=== PATIENT | female | born 1995 | race American Indian/Alaskan Native ===

== ENCOUNTER 2017-02-17 21:37 | Emergency (ER) | payer MEDICAID ==
[2017-02-17] MEDS ORDERED: PROVENTIL IH ONE (21:51)
--- NOTE | 2017-02-17 22:16 | Emergency Department Report ---
ED Asthma HPI - General Chief Complaint: Adult Asthma Stated Complaint: SOB,COUGH,COLD,ABD PAIN, Time Seen by Provider: 02/17/17 22:00 Source: patient Mode of arrival: Ambulatory Limitations: No Limitations - History of Present Illness Initial Comments: She reports that she has asthma flareup and she's been using her albuterol very frequently over the last 3 weeks she's been using it at least 2-3 times a day. She says she has cough and nasal congestion. she reports that her albuterol inhaler is not working. She denies any wheezing. No recent emergency room visit for asthma flare. Denies any chest pain or shortness of breath. Denies any nausea or vomiting. Denies any fever or chills. Patient also reports that her last period was 12/01/2016 and she took a home test was positive with spacer at approximately 10 weeks . She has no care because she says she has no insurance. She said a few weeks ago she had a large amount of vaginal bleeding but she did not follow-up because she did not have any way to get to the hospital. She denies any abdominal pain, back pain, flank pain. Denies any urinary burning frequency or urgency. Denies any vaginal bleeding or discharge is present. Patient is also requesting an ultrasound to check her baby. MD Complaint: "asthma attack", other () Onset/Timin -: week(s) Asthma History: childhood onset, history of frequent attac, history of prior ED visit Severity: similar to prior Context: recent URI Associated Symptoms: dry cough. denies: productive cough, fever, chest pain, hemoptysis, leg edema, syncope Treatments Prior to Arrival: inhaled bronchodilator - Related Data Current Asthma Therapy: inhaled bronchodilator Previous Rx's Medication Instructions Recorded Last Taken Type ALBUTEROL Inhaler [ProAir HFA 2 puff IH QID PRN 30 Days #1 02/18/17 Unknown Rx Inhaler] inhalation Allergies Allergy/AdvReac Type Severity Reaction Status Date / Time No Known Allergies Allergy Unverified 02/17/17 21:47 ED Review of Systems ROS: Stated complaint: SOB,COUGH,COLD,ABD PAIN, Other details as noted in HPI Comment: All other systems reviewed and negative Constitutional: no symptoms reported ENT: congestion. denies: ear pain, throat pain Respiratory: cough. denies: orthopnea, shortness of breath, SOB with exertion, SOB at rest, stridor, wheezing Cardiovascular: denies: chest pain, palpitations, dyspnea on exertion, orthopnea , edema, syncope, paroxysmal nocturnal dyspnea Gastrointestinal: denies: abdominal pain, nausea, vomiting, diarrhea, constipation, hematemesis, melena, hematochezia Genitourinary: abnormal menses, other (report that she had vaginal bleeding couple weeks ago but did not follow up). denies: urgency, dysuria, frequency, hematuria, discharge, dyspareunia Musculoskeletal: denies: back pain, joint swelling, arthralgia, myalgia Skin: denies: rash Neurological: denies: headache, weakness, numbness, paresthesias, confusion, abnormal gait, vertigo ED Past Medical Hx - Past Medical History Previous Medical History?: Yes Hx Asthma: Yes - Surgical History Past Surgical History?: Yes Additional Surgical History: Tonsilectomy - Family History Family history: no significant - Social History Smoking Status: Never Smoker Substance Use Type: None - Medications Home Medications: Home Medications Medication Instructions Recorded Confirmed Last Taken Type ALBUTEROL Inhaler [ProAir HFA 2 puff IH QID PRN 30 Days #1 02/18/17 Unknown Rx Inhaler] inhalation ED Physical Exam - General Limitations: No Limitations General appearance: alert, in no apparent distress - Head Head exam: Present: atraumatic, normocephalic, normal inspection - Eye Eye exam: Present: PERRL, EOMI Pupils: Present: normal accommodation - ENT ENT exam: Present: normal orophraynx, mucous membranes moist, normal external ear exam, other (bilateral nasal mucosa congested with erythema and clear drainage.). Absent: TM's normal bilaterally (bilateral TM congested without erythema) - Neck Neck exam: Present: normal inspection, full ROM. Absent: tenderness, meningismus, lymphadenopathy - Respiratory Respiratory exam: Present: normal lung sounds bilaterally. Absent: respiratory distress, chest wall tenderness, accessory muscle use - Cardiovascular Cardiovascular Exam: Present: regular rate, normal rhythm, normal heart sounds. Absent: systolic murmur, diastolic murmur - GI/Abdominal GI/Abdominal exam: Present: soft, normal bowel sounds. Absent: distended, tenderness, guarding, rebound, rigid, organomegaly, mass, bruit, pulsatile mass , hernia - Extremities Exam Extremities exam: Present: normal inspection, full ROM, normal capillary refill , other (no clubbing, cyanosis or edema. +2 pulses to all extremities. No neurovascular compromise.). Absent: tenderness, pedal edema, joint swelling, calf tenderness - Back Exam Back exam: Present: normal inspection, full ROM. Absent: tenderness, CVA tenderness (R), CVA tenderness (L), muscle spasm, paraspinal tenderness, vertebral tenderness, rash noted - Neurological Exam Neurological exam: Present: alert, oriented X3, normal gait - Psychiatric Psychiatric exam: Present: normal affect, normal mood - Skin Skin exam: Present: warm, dry, intact, normal color. Absent: rash ED Course Vital Signs 02/17/17 02/18/17 21:41 02:28 Temperature 97.5 F L Pulse Rate 75 89 Respiratory 20 18 Rate Blood Pressure 135/89 Blood Pressure 138/89 [Left] O2 Sat by Pulse 99 Oximetry - Reevaluation(s) Reevaluation #1: 02/17/17 23:30 Patient had uneventful ED stay. She was given nebulizer treatment in emergency room. She had coughing but no wheezing. She is stable but request an ultrasound because she said she is and had vaginal bleeding 2 weeks ago. Reevaluation #2: 02/18/17 02:06 Ultrasound canceled because patient serum quantitative hCG was less than 2. Patient received albuterol 2 doses and emergency room with positive relief of wheezing from lung [place]. I discussed this with patient and I discussed with her that she more than likely had a miscarriage and she will need to follow up outpatient with [facility]. No pelvic exam needed at this time because patient is not having any abdominal pain, vaginal bleeding or discharge. urinalysis normal except that it was contaminated. She is not having any urinary symptoms. 02/18/17 05:59 ED Medical Decision Making - Lab Data Result diagrams: 02/17/17 22:39 02/17/17 22:39 Lab Results 02/17/17 02/17/17 02/17/17 Range/Units 22:39 22:39 22:39 WBC 11.1 H (4.5-11.0) K/mm3 RBC 4.54 (3.65-5.03) M/mm3 Hgb 12.9 (10.1-14.3) gm/dl Hct 39.7 (30.3-42.9) % MCV 87 (79-97) fl MCH 28 (28-32) pg MCHC 32 (30-34) % RDW 14.0 (13.2-15.2) % Plt Count 372 (140-440) K/mm3 Lymph % (Auto) 33.0 (13.4-35.0) % [place] % (Auto) 11.2 H (0.0-7.3) % Eos % (Auto) 7.6 H (0.0-4.3) % Baso % (Auto) 0.9 (0.0-1.8) % Lymph # 3.7 (1.2-5.4) K/mm3 [place] # 1.2 H (0.0-0.8) K/mm3 Eos # 0.8 H (0.0-0.4) K/mm3 Baso # 0.1 (0.0-0.1) K/mm3 Seg Neutrophils % 47.3 (40.0-70.0) % Seg Neutrophils # 5.2 (1.8-7.7) K/mm3 Sodium 137 (137-145) mmol/L Potassium 4.4 (3.6-5.0) mmol/L Chloride 100.9 (98-107) mmol/L Carbon Dioxide 23 (22-30) mmol/L Anion Gap 18 mmol/L BUN 6 L (7-17) mg/dL Creatinine 0.6 L (0.7-1.2) mg/dL Estimated GFR > 60 ml/min BUN/Creatinine Ratio 10 % Glucose 85 (65-100) mg/dL Calcium 8.8 (8.4-10.2) mg/dL HCG, Qual (Negative) HCG, Quant < 2 (0-4) mIU/mL Urine Color (Yellow) Urine Turbidity (Clear) Urine pH (5.0-7.0) Ur Specific [place] (1.003-1.030) Urine Protein (Negative) mg/dL Urine Glucose (UA) (Negative) mg/dL Urine Ketones (Negative) mg/dL Urine Blood (Negative) Urine Nitrite (Negative) Urine Bilirubin (Negative) Urine Urobilinogen (<2.0) mg/dL Ur Leukocyte Esterase (Negative) Urine WBC (Auto) (0.0-6.0) /HPF Urine RBC (Auto) (0.0-6.0) /HPF U Epithel Cells (Auto) (0-13.0) /HPF Urine Mucus /HPF 02/17/17 02/18/17 Range/Units 22:39 00:11 WBC (4.5-11.0) K/mm3 RBC (3.65-5.03) M/mm3 Hgb (10.1-14.3) gm/dl Hct (30.3-42.9) % MCV (79-97) fl MCH (28-32) pg MCHC (30-34) % RDW (13.2-15.2) % Plt Count (140-440) K/mm3 Lymph % (Auto) (13.4-35.0) % [place] % (Auto) (0.0-7.3) % Eos % (Auto) (0.0-4.3) % Baso % (Auto) (0.0-1.8) % Lymph # (1.2-5.4) K/mm3 [place] # (0.0-0.8) K/mm3 Eos # (0.0-0.4) K/mm3 Baso # (0.0-0.1) K/mm3 Seg Neutrophils % (40.0-70.0) % Seg Neutrophils # (1.8-7.7) K/mm3 Sodium (137-145) mmol/L Potassium (3.6-5.0) mmol/L Chloride (98-107) mmol/L Carbon Dioxide (22-30) mmol/L Anion Gap mmol/L BUN (7-17) mg/dL Creatinine (0.7-1.2) mg/dL Estimated GFR ml/min BUN/Creatinine Ratio % Glucose (65-100) mg/dL Calcium (8.4-10.2) mg/dL HCG, Qual Negative (Negative) HCG, Quant (0-4) mIU/mL Urine Color Yellow (Yellow) Urine Turbidity Clear (Clear) Urine pH 6.0 (5.0-7.0) Ur Specific [place] 1.026 (1.003-1.030) Urine Protein <15 mg/dl (Negative) mg/dL Urine Glucose (UA) Neg (Negative) mg/dL Urine Ketones Neg (Negative) mg/dL Urine Blood Neg (Negative) Urine Nitrite Neg (Negative) Urine Bilirubin Neg (Negative) Urine Urobilinogen 4.0 (<2.0) mg/dL Ur Leukocyte Esterase Sm (Negative) Urine WBC (Auto) 4.0 (0.0-6.0) /HPF Urine RBC (Auto) 1.0 (0.0-6.0) /HPF U Epithel Cells (Auto) 16.0 H (0-13.0) /HPF Urine Mucus 3+ /HPF - Medical Decision Making ED course: Patient here report that she was having an asthma flareup and has been using her asthma several times a day. She reports cough. She is also here reporting that she had a positive test and her last menstrual period was 10 weeks ago. Blood and quantitative hCG negative for . Patient with mild asthma exacerbation. She also has upper respiratory tract infection with cough and congestion. I discussed patient that since she has report of positive tests, large amount of vaginal bleeding in about 2 weeks ago without any follow-up, absence of menses for 10 weeks and her test were negative. I told her that there is a high probability that she had a complete miscarriage. Patient is not having any vaginal bleeding at present and she has not had any since 2 weeks ago. She is not complaining of any urinary symptoms or any vaginal symptoms nor she concern for STD. Patient was treated with albuterol 2.5 mg nebulizer 2 and emergency room with positive relief of wheezing and cough has diminished. I discussed with her that since she does not have a primary care physician she'll need to follow up with some [facility] to manage her chronic asthma and also they can refer her to [facility] at same clinic follow-up possible miscarriage. She discharged home and she was understanding the discharge instructions and need to follow up and give her prescription for albuterol. I also instructed her she can take Zyrtec and Flonase for upper respiratory which is [id number] to prevent asthma exacerbation. Critical care attestation.: If time is entered above; I have spent that time in minutes in the direct care of this critically ill patient, excluding procedure time. ED Disposition Clinical Impression: Negative test, Cough in adult, Complete miscarriage, Abnormal menses , Upper respiratory infection with cough and congestion Asthma attack Qualifiers: Asthma severity: mild Asthma persistence: intermittent Qualified Code(s): J45.21 - Mild intermittent asthma with (acute) exacerbation Disposition: - TO HOME OR SELFCARE Is pt being admited?: No Does the pt Need Aspirin: No Condition: Stable Instructions: Spontaneous Miscarriage (ED), Asthma (ED), Acute Cough (ED), Upper Respiratory Infection (ED) Additional Instructions: follow-up with outside Medical Center for primary care since she does not have any insurance and they can also refer you to [facility] at some outside Medical Center Your blood test and blood hormone tests shows that you're not and she reports that you had vaginal bleeding approximately 2 weeks ago. Since she had not had a period for 10 weeks, positive home test with reported vaginal bleeding and now negative test the assumption is that you had a miscarriage. Increasing fluid intake Please call with outside Medical Center on Monday and schedule an appointment for management of asthma as you may need medication that you take twice a day so he will not have to use your rescue inhaler as often as you using it. Prescriptions: ALBUTEROL Inhaler [ProAir HFA Inhaler] 2 puff IH QID PRN 30 Days #1 inhalation PRN Reason: COUGH AND WHEEZING Referrals: [facility] [Outside] - 3-5 Days [facility] [Provider Group] - 3-5 Days Forms: Work/School Release Form(ED)
[2017-02-17 23:27] LABS: Basophils % (Auto) 0.9 % (0.0-1.8); Eosinophils % (Auto) 7.6 % (0.0-4.3); Hematocrit 39.7 % (30.3-42.9); Hemoglobin 12.9 gm/dl (10.1-14.3); Mean Corpuscular HGB Conc 32 % (30-34); Mean Corpuscular Hemoglobin 28 pg (28-32); Mean Corpuscular Volume 87 fl (79-97); Platelet Count 372 K/mm3 (140-440); Red Blood Count 4.54 M/mm3 (3.65-5.03); White Blood Count 11.1 K/mm3 (4.5-11.0)
[2017-02-17 23:41] LABS: Anion Gap 18 mmol/L; BUN/Creatinine Ratio 10; Blood Urea Nitrogen 6 mg/dL (7-17); Calcium 8.8 mg/dL (8.4-10.2); Carbon Dioxide 23 mmol/L (22-30); Chloride 100.9 mmol/L (98-107); Glucose 85 mg/dL (65-100); Potassium 4.4 mmol/L (3.6-5.0); Sodium 137 mmol/L (137-145)
[2017-02-18 00:24] LABS: Bilirubin,Urine NEG (Negative); Blood,Urine NEG (Negative); Ketones,Urine NEG (Negative); Leukocyte Esterase,Urine SM (Negative); Mucus,Urine 3+ /HPF; Nitrite,Urine NEG (Negative); Protein,Urine <15 mg/dL mg/dL (Negative)
[2017-02-18] MEDS ORDERED: PROVENTIL IH ONE ×2 (01:49)
[2017-02-18 02:29] VITALS: BP 138/89
== END 2017-02-18 02:29 | disposition home or self-care (01) ==
LOC: ED 21:37
DX: J45.21 Mild intermittent asthma with (acute) exacerbation (principal); J06.9 Acute upper respiratory infection, unspecified; N92.6 Irregular menstruation, unspecified
CPT/HCPCS: 36415; 80048; 81001; 84702; 84703; 85025; 94640

== ENCOUNTER 2020-10-06 08:24 | Inpatient (IN) | payer MEDICAID ==
[2020-10-06] MEDS ORDERED: LOPERAMIDE 2 MG CAP PO PRN (10:36)
[2020-10-06] MEDS ORDERED: CARBOPROST TROMETHAMINE 250 MCG/1 ML INJ IM PRN (10:36)
[2020-10-06] MEDS ORDERED: AMPICILLIN/NS 2 GM/100 ML 2 GM/100 ML BAG IV ONE (10:36)
[2020-10-06] MEDS ORDERED: TERBUTALINE 1 MG/1 ML INJ SUB-Q PRN (10:36)
[2020-10-06] MEDS ORDERED: DINOPROSTONE 10 MG VAG SUPP VG NR (10:36)
[2020-10-06] MEDS ORDERED: INSULIN REGULAR, HUMAN 100 UNITS/1 ML SUB-Q SCH (11:00)
[2020-10-06] MEDS ORDERED: DEXTROSE 50% IN WATER (25GM) 50 ML SYRINGE IV PRN (11:00)
[2020-10-06] MEDS ORDERED: OXYTOCIN DRIP 30 UNITS/500 ML BAG IV SCH ×2 (11:00)
[2020-10-06] MEDS ORDERED: fentaNYL 100 MCG/2 ML INJ IV PRN (11:00)
[2020-10-06] MEDS ORDERED: LIDOCAINE (2%) 20 MG/1 ML VIAL 20 ML MDV INFILTRATI NR (11:00)
[2020-10-06] MEDS ORDERED: ePHEDrine SULFATE 50 MG/1 ML INJ IV PRN (11:00)
[2020-10-06] MEDS ORDERED: ACETAMINOPHEN 325 MG TAB PO PRN (11:00)
[2020-10-06] MEDS ORDERED: valACYclovir 500 MG TAB PO SCH (11:00)
[2020-10-06] MEDS ORDERED: OXYTOCIN 10 UNIT/1 ML INJ IM PRN (11:30)
[2020-10-06] MEDS ORDERED: miSOPROStol 200 MCG TAB PR PRN (11:30)
[2020-10-06] MEDS ORDERED: BUTORPHANOL 2 MG/1 ML INJ IV PRN (11:30)
[2020-10-06] MEDS ORDERED: ONDANSETRON 4 MG/2 ML INJ IV PRN (11:30)
[2020-10-06] MEDS ORDERED: NALOXONE 0.4 MG/1 ML INJ IV PRN (11:30)
--- NOTE | 2020-10-06 13:24 | History and Physical Report ---
History of Present Illness Date of examination: 10/06/20 Chief complaint: scheduled induction History of present illness: Pt is a 24 year old -[place] female [place] 10/19/20 at 38w1d who presents for scheduled induction secondary to chronic hypertension on no meds, gestational diabetes on Metformin, and morbid obesity. She denies contractions or vaginal bleeding. She has had care at [facility] with comanagement by [facility] secondary to morbid obesity, chronic hypertension, gestational diabetes, polyhydramnios, asthma, maternal VSD s/p Cardiology referral March 2020, and genital herpes. She is GBS positive. Past History Past Medical History: asthma, hypertension (maternal VSD; ) Past Surgical History: tonsillectomy, [employer] History: herpes Family/Genetic History: heart disease, hypertension, cancer Social history: no significant social history - Obstetrical History Expected Date of Delivery: 10/19/20 (.) Actual Gestation: 38 Week(s) 1 Day(s) : 3 Para: 0 Hx # Term Pregnancies: 0 Number of Pregnancies: 0 Spontaneous Abortions: 0 Induced : 2 Number of Living Children: 0 Medications and Allergies Allergies Allergy/AdvReac Type Severity Reaction Status Date / Time No Known Allergies Allergy Unverified 02/17/17 21:47 Home Medications Medication Instructions Recorded Confirmed Last Taken Type Albuterol Mdi (or & Nicu Only) 2 puff IH QID PRN 30 Days #1 02/18/17 Unknown Rx [ProAir HFA Inhaler] inhalation Active Meds: Active Medications Acetaminophen (Acetaminophen 325 Mg Tab) 650 mg PO Q4H PRN PRN Reason: Pain, Mild (1-3) Butorphanol Tartrate (Butorphanol 2 Mg/1 Ml Inj) 1 mg IV Q2H PRN PRN Reason: Pain, Moderate(4-6) LABOR PAIN Carboprost Tromethamine (Carboprost Tromethamine 250 Mcg/1 Ml Inj) 250 mcg IM ONCE PRN PRN Reason: Uterine Bleeding Stop: 10/07/20 10:35 Dextrose (Dextrose 50% In Water (25gm) 50 Ml Syringe) 50 ml IV Q30MIN PRN; Protocol PRN Reason: Hypoglycemia Dinoprostone (Dinoprostone 10 Mg Vag Supp) 10 mg VG ONCE NR Stop: 10/07/20 10:35 Ephedrine Sulfate (Ephedrine Sulfate 50 Mg/1 Ml Inj) 10 mg IV Q2M PRN PRN Reason: Hypotension Fentanyl (Fentanyl 100 Mcg/2 Ml Inj) 100 mcg IV Q2H PRN PRN Reason: Pain,Severe (7-10) LABOR PAIN Oxytocin/Sodium Chloride (Pitocin/Ns 30 Unit/500ml) 30 units in 500 mls @ 2 mls/hr IV TITR DIANA; Protocol Lactated Ringer's (Lactated Ringers) 1,000 mls @ 125 mls/hr IV DIRECT DIANA Oxytocin/Sodium Chloride (Pitocin/Ns 30 Unit/500ml) 30 units in 500 mls @ 40 mls/hr IV TITR DIANA; Protocol Ampicillin Sodium (Ampicillin/Ns 1 Gm/50 Ml) 1 gm in 50 mls @ 100 mls/hr IV Q4H DIANA; Protocol Insulin Human Regular (Insulin Regular, Human 100 Units/1 Ml) 0 units SUB-Q Q4H DIANA; Protocol Lidocaine (Lidocaine (2%) 20 Mg/1 Ml Vial 20 Ml Mdv) 20 ml INFILTRATI ONCE NR Stop: 10/06/20 14:00 Loperamide HCl (Loperamide 2 Mg Cap) 2 mg PO ONCE PRN PRN Reason: give with Hemabate Stop: 10/07/20 10:35 Mineral Oil (Mineral Oil 30 Ml Oral Liqd) 30 ml PO QHS PRN PRN Reason: Constipation Misoprostol (Misoprostol 200 Mcg Tab) [address] ONCE PRN PRN Reason: Uterine Bleeding Stop: 10/07/20 11:29 Naloxone HCl (Naloxone 0.4 Mg/1 Ml Inj) 0.1 mg IV Q2MIN PRN PRN Reason: Res Rate </= 8 or 02 SAT < 92% Ondansetron HCl (Ondansetron 4 Mg/2 Ml Inj) 4 mg IV Q8H PRN PRN Reason: Nausea And Vomiting Oxytocin (Oxytocin 10 Unit/1 Ml Inj) 10 unit IM ONCE PRN PRN Reason: Uterine Bleeding Terbutaline Sulfate (Terbutaline 1 Mg/1 Ml Inj) 0.25 mg SUB-Q ONCE PRN PRN Reason: Hyperstimulation/Hypertonicity Stop: 10/07/20 10:35 Valacyclovir HCl (Valacyclovir 500 Mg Tab) 1,000 mg PO QDAY DIANA Review of Systems All systems: negative - Vital Signs Vital signs: Vital Signs Pulse BP 86 136/88 10/06/20 09:21 10/06/20 09:21 Temp Pulse Resp BP Pulse Ox 98.1 F 98 H 16 133/81 99 10/06/20 10:26 10/06/20 13:21 10/06/20 10:26 10/06/20 13:09 10/06/20 13:21 - Physical Exam Breasts: Positive: deferred Abdomen: Positive: soft (gravid,obese ) Uterus: Positive: enlarged (gravid ) Extremities: Positive: normal - Obstetrical FHR: auscultation normal Uterine Contraction Monitor Mode: External Cervical Dilatation: 1 Uterine Contraction Pattern: Regular Uterine Tone Measurement Phase: Resting Results Result Diagrams: 10/06/20 15:42 All other labs normal. Assessment and Plan A: IUP at 38w1d Chronic hypertension on no meds Gestational diabetes on Metformin Morbid obesity Polyhydramnios Asthma Maternal VSD s/p Cardiology referral March 2020 Genital herpes without lesion or prodrome GBS positive P: Admit to Labor and Delivery Accuchek q 4 hrs while in latent labor Valtrex Routine intrapartum care
--- NOTE | 2020-10-06 13:37 | Ultrasound Report ---
Limited OB Ultrasound HISTORY: Presentation evaluation. TECHNIQUE: Grayscale and color imaging performed. COMPARISON: None FINDINGS: Single viable intrauterine gestation with cephalic presentation. Anterior placenta. Heart r ate is 149 bpm. IMPRESSION: Single viable intrauterine gestation as above. Signer Name: Hakan Park MD Signed: 10/06/2020 1:32 PM Workstation Name: [id number]
[2020-10-06 16:06] LABS: Hematocrit 35.9 % (30.3-42.9); Hemoglobin 12.2 gm/dl (10.1-14.3); Mean Corpuscular HGB Conc 34 % (30-34); Mean Corpuscular Volume 85 fl (79-97); Platelet Count 282 K/mm3 (140-440); Red Blood Count 4.25 M/mm3 (3.65-5.03); Red Cell Distribution Width 15.2 % (13.2-15.2)
[2020-10-06] MEDS: valACYclovir 500 MG TAB PO SCH (17:26)
[2020-10-06] MEDS ORDERED: MINERAL OIL 30 ML ORAL LIQD PO PRN (22:00)
[2020-10-07] MEDS: valACYclovir 500 MG TAB PO SCH ×2 (04:13→10:48)
[2020-10-07] MEDS: LACTATED RINGERS 1,000 ML IV SCH ×3 (04:13→22:55)
[2020-10-07] MEDS: AMPICILLIN/NS 1 GM/50 ML 1 GM/50 ML BAG IV SCH ×2 (11:07→18:13)
--- NOTE | 2020-10-07 13:27 | Progress Note ---
Assessment and Plan - Patient Problems (1) Encounter for induction of labor Current Visit: Yes Status: Acute Plan to address problem: Stop Pitocin titration x 1 hr, reassess Restart Pitocin if ctx pattern spaces out Pain meds as desired per orders Anticipate (2) Chronic hypertension Current Visit: Yes Status: Acute Plan to address problem: Continue to monitor B/Ps (3) Polyhydramnios affecting in third trimester Current Visit: Yes Status: Acute (4) Positive GBS test Current Visit: Yes Status: Acute Plan to address problem: GBS prophylaxis Subjective - Subjective Date of service: 10/07/20 Principal diagnosis: IOL secondary to cHTN; Polyhydramnios Interval history: Pt is a 24 year old -[place] female [facility] 10/19/20 at 38w1d who presents for scheduled induction secondary to chronic hypertension on no meds, gestational diabetes on Metformin, and morbid obesity. She denies contractions or vaginal bleeding. She has had care at [facility] with comanagement by [facility] secondary to morbid obesity, chronic hypertension, gestational diabetes, polyhydramnios, asthma, maternal VSD s/p Cardiology referral March 2020, and genital herpes. She is GBS positive. Patient reports: movement normal, contractions, no new complaints, no loss of fluid, no vaginal bleeding Objective - Vital Signs Vital Signs: Vital Signs - 12hr 10/07/20 10/07/20 10/07/20 01:29 01:34 01:39 Temperature Pulse Rate 116 H 112 H 120 H Blood Pressure O2 Sat by Pulse 100 100 100 Oximetry O2 Sat by Pulse Oximetry [ Bilateral Throughout] 10/07/20 10/07/20 10/07/20 01:40 01:44 01:49 Temperature Pulse Rate 116 H 122 H 128 H Blood Pressure 133/60 O2 Sat by Pulse 98 98 Oximetry O2 Sat by Pulse Oximetry [ Bilateral Throughout] 10/07/20 10/07/20 10/07/20 01:55 02:00 02:05 Temperature Pulse Rate 110 H 111 H 105 H Blood Pressure O2 Sat by Pulse 98 98 98 Oximetry O2 Sat by Pulse Oximetry [ Bilateral Throughout] 10/07/20 10/07/20 10/07/20 02:09 02:10 02:15 Temperature Pulse Rate 115 H 108 H 95 H Blood Pressure 146/63 O2 Sat by Pulse 99 99 Oximetry O2 Sat by Pulse Oximetry [ Bilateral Throughout] 10/07/20 10/07/20 10/07/20 02:20 02:25 02:30 Temperature Pulse Rate 112 H 104 H 91 H Blood Pressure 121/70 O2 Sat by Pulse 97 98 98 Oximetry O2 Sat by Pulse Oximetry [ Bilateral Throughout] 10/07/20 10/07/20 10/07/20 02:35 02:40 02:45 Temperature Pulse Rate 96 H 106 H 100 H Blood Pressure 139/84 O2 Sat by Pulse 100 99 98 Oximetry O2 Sat by Pulse Oximetry [ Bilateral Throughout] 10/07/20 10/07/20 10/07/20 02:50 02:55 03:00 Temperature Pulse Rate 100 H 96 H 98 H Blood Pressure 137/72 O2 Sat by Pulse 99 99 99 Oximetry O2 Sat by Pulse Oximetry [ Bilateral Throughout] 10/07/20 10/07/20 10/07/20 03:05 03:09 03:10 Temperature Pulse Rate 90 100 H 98 H Blood Pressure 144/81 O2 Sat by Pulse 99 99 Oximetry O2 Sat by Pulse Oximetry [ Bilateral Throughout] 10/07/20 10/07/20 10/07/20 03:15 03:20 03:25 Temperature Pulse Rate 102 H 104 H 104 H Blood Pressure 121/60 O2 Sat by Pulse 100 99 99 Oximetry O2 Sat by Pulse Oximetry [ Bilateral Throughout] 10/07/20 10/07/20 10/07/20 03:30 03:35 03:39 Temperature Pulse Rate 101 H 100 H 95 H Blood Pressure 121/65 O2 Sat by Pulse 98 97 Oximetry O2 Sat by Pulse Oximetry [ Bilateral Throughout] 10/07/20 10/07/20 10/07/20 03:40 03:45 03:50 Temperature Pulse Rate 101 H 93 H 101 H Blood Pressure O2 Sat by Pulse 97 97 96 Oximetry O2 Sat by Pulse Oximetry [ Bilateral Throughout] 10/07/20 10/07/20 10/07/20 03:54 03:55 04:00 Temperature Pulse Rate 113 H 96 H 113 H Blood Pressure 118/63 O2 Sat by Pulse 100 100 Oximetry O2 Sat by Pulse Oximetry [ Bilateral Throughout] 10/07/20 10/07/20 10/07/20 04:05 04:09 04:10 Temperature Pulse Rate 118 H 122 H 110 H Blood Pressure 127/69 O2 Sat by Pulse 100 100 Oximetry O2 Sat by Pulse Oximetry [ Bilateral Throughout] 10/07/20 10/07/20 10/07/20 04:15 04:20 04:24 Temperature Pulse Rate 111 H 101 H 99 H Blood Pressure 153/76 O2 Sat by Pulse 100 97 Oximetry O2 Sat by Pulse Oximetry [ Bilateral Throughout] 10/07/20 10/07/20 10/07/20 04:33 04:38 04:39 Temperature Pulse Rate 91 H 89 100 H Blood Pressure 134/69 O2 Sat by Pulse 100 99 Oximetry O2 Sat by Pulse Oximetry [ Bilateral Throughout] 10/07/20 10/07/20 10/07/20 04:43 04:48 04:53 Temperature Pulse Rate 95 H 99 H 85 Blood Pressure O2 Sat by Pulse 99 99 100 Oximetry O2 Sat by Pulse Oximetry [ Bilateral Throughout] 10/07/20 10/07/20 10/07/20 04:54 04:58 05:03 Temperature Pulse Rate 92 H 110 H 103 H Blood Pressure 132/72 O2 Sat by Pulse 99 98 Oximetry O2 Sat by Pulse Oximetry [ Bilateral Throughout] 10/07/20 10/07/20 10/07/20 05:08 05:09 05:59 Temperature Pulse Rate 109 H 96 H 109 H Blood Pressure 141/81 155/64 O2 Sat by Pulse 99 98 Oximetry O2 Sat by Pulse Oximetry [ Bilateral Throughout] 10/07/20 10/07/20 10/07/20 06:04 06:09 06:14 Temperature Pulse Rate 98 H 88 102 H Blood Pressure 139/78 O2 Sat by Pulse 97 98 99 Oximetry O2 Sat by Pulse Oximetry [ Bilateral Throughout] 10/07/20 10/07/20 10/07/20 06:19 06:24 06:26 Temperature 98.1 F Pulse Rate 98 H 98 H Blood Pressure 139/81 O2 Sat by Pulse 98 97 Oximetry O2 Sat by Pulse Oximetry [ Bilateral Throughout] 10/07/20 10/07/20 10/07/20 06:29 06:34 06:39 Temperature Pulse Rate 104 H 89 95 H Blood Pressure O2 Sat by Pulse 99 99 98 Oximetry O2 Sat by Pulse Oximetry [ Bilateral Throughout] 10/07/20 10/07/20 10/07/20 06:40 06:44 06:49 Temperature Pulse Rate 90 112 H 110 H Blood Pressure 145/80 O2 Sat by Pulse 98 98 Oximetry O2 Sat by Pulse Oximetry [ Bilateral Throughout] 10/07/20 10/07/20 10/07/20 06:54 06:55 06:59 Temperature Pulse Rate 106 H 103 H 101 H Blood Pressure 158/72 O2 Sat by Pulse 99 99 Oximetry O2 Sat by Pulse Oximetry [ Bilateral Throughout] 10/07/20 10/07/20 10/07/20 07:04 07:09 07:14 Temperature Pulse Rate 109 H 117 H 105 H Blood Pressure 161/74 O2 Sat by Pulse 99 98 99 Oximetry O2 Sat by Pulse Oximetry [ Bilateral Throughout] 10/07/20 10/07/20 10/07/20 07:19 07:24 07:26 Temperature Pulse Rate 98 H 93 H 100 H Blood Pressure 134/67 O2 Sat by Pulse 97 97 Oximetry O2 Sat by Pulse Oximetry [ Bilateral Throughout] 10/07/20 10/07/20 10/07/20 07:29 07:34 07:39 Temperature Pulse Rate 93 H 100 H 93 H Blood Pressure 140/73 O2 Sat by Pulse 97 96 97 Oximetry O2 Sat by Pulse Oximetry [ Bilateral Throughout] 10/07/20 10/07/20 10/07/20 07:44 07:46 07:49 Temperature Pulse Rate 98 H 110 H Blood Pressure O2 Sat by Pulse 99 98 Oximetry O2 Sat by Pulse 99 Oximetry [ Bilateral Throughout] 10/07/20 10/07/20 10/07/20 07:54 07:59 08:04 Temperature Pulse Rate 111 H 101 H 103 H Blood Pressure 151/80 O2 Sat by Pulse 98 99 97 Oximetry O2 Sat by Pulse Oximetry [ Bilateral Throughout] 10/07/20 10/07/20 10/07/20 08:09 08:10 08:14 Temperature Pulse Rate 107 H 101 H 113 H Blood Pressure 159/84 O2 Sat by Pulse 99 98 Oximetry O2 Sat by Pulse Oximetry [ Bilateral Throughout] 10/07/20 10/07/20 10/07/20 08:19 08:24 08:29 Temperature Pulse Rate 102 H 109 H 109 H Blood Pressure 155/85 O2 Sat by Pulse 99 98 97 Oximetry O2 Sat by Pulse Oximetry [ Bilateral Throughout] 10/07/20 10/07/20 10/07/20 08:34 08:44 08:49 Temperature Pulse Rate 112 H 137 H 108 H Blood Pressure O2 Sat by Pulse 98 98 98 Oximetry O2 Sat by Pulse Oximetry [ Bilateral Throughout] 10/07/20 10/07/20 10/07/20 08:54 08:59 09:04 Temperature Pulse Rate 110 H 95 H 107 H Blood Pressure 143/84 O2 Sat by Pulse 98 98 98 Oximetry O2 Sat by Pulse Oximetry [ Bilateral Throughout] 10/07/20 10/07/20 10/07/20 09:09 09:14 09:19 Temperature Pulse Rate 101 H 98 H 92 H Blood Pressure 135/87 O2 Sat by Pulse 99 98 99 Oximetry O2 Sat by Pulse Oximetry [ Bilateral Throughout] 10/07/20 10/07/20 10/07/20 09:24 09:29 09:34 Temperature Pulse Rate 116 H 93 H 99 H Blood Pressure 161/74 O2 Sat by Pulse 100 99 99 Oximetry O2 Sat by Pulse Oximetry [ Bilateral Throughout] 10/07/20 10/07/20 10/07/20 09:39 09:44 09:49 Temperature Pulse Rate 105 H 93 H 116 H Blood Pressure 140/84 O2 Sat by Pulse 98 98 98 Oximetry O2 Sat by Pulse Oximetry [ Bilateral Throughout] 10/07/20 10/07/20 10/07/20 09:54 09:59 10:04 Temperature Pulse Rate 95 H 94 H 87 Blood Pressure 154/91 O2 Sat by Pulse 97 97 96 Oximetry O2 Sat by Pulse Oximetry [ Bilateral Throughout] 10/07/20 10/07/20 10/07/20 10:09 10:14 10:19 Temperature Pulse Rate 95 H 91 H 94 H Blood Pressure 152/81 O2 Sat by Pulse 99 98 97 Oximetry O2 Sat by Pulse Oximetry [ Bilateral Throughout] 10/07/20 10/07/20 10/07/20 10:24 10:29 10:37 Temperature Pulse Rate 98 H 106 H 110 H Blood Pressure 131/77 O2 Sat by Pulse 99 99 99 Oximetry O2 Sat by Pulse Oximetry [ Bilateral Throughout] 10/07/20 10/07/20 10/07/20 10:40 10:42 10:47 Temperature Pulse Rate 104 H 83 111 H Blood Pressure 168/94 O2 Sat by Pulse 98 99 Oximetry O2 Sat by Pulse Oximetry [ Bilateral Throughout] 10/07/20 10/07/20 10/07/20 10:52 10:55 10:57 Temperature Pulse Rate 103 H 109 H 103 H Blood Pressure 171/78 O2 Sat by Pulse 98 99 Oximetry O2 Sat by Pulse Oximetry [ Bilateral Throughout] 10/07/20 10/07/20 10/07/20 11:02 11:07 11:10 Temperature Pulse Rate 115 H 141 H 142 H Blood Pressure 163/84 O2 Sat by Pulse 99 99 Oximetry O2 Sat by Pulse Oximetry [ Bilateral Throughout] 10/07/20 10/07/20 10/07/20 11:12 11:17 11:22 Temperature Pulse Rate 126 H 125 H 120 H Blood Pressure O2 Sat by Pulse 99 98 98 Oximetry O2 Sat by Pulse Oximetry [ Bilateral Throughout] 10/07/20 10/07/20 10/07/20 11:25 11:27 11:32 Temperature Pulse Rate 118 H 125 H 132 H Blood Pressure 140/88 O2 Sat by Pulse 99 99 Oximetry O2 Sat by Pulse Oximetry [ Bilateral Throughout] 10/07/20 10/07/20 10/07/20 11:37 11:39 11:41 Temperature 98.8 F Pulse Rate 120 H 131 H Blood Pressure 141/86 O2 Sat by Pulse 99 Oximetry O2 Sat by Pulse Oximetry [ Bilateral Throughout] 10/07/20 10/07/20 10/07/20 11:42 11:47 11:52 Temperature Pulse Rate 111 H 118 H 121 H Blood Pressure O2 Sat by Pulse 97 98 98 Oximetry O2 Sat by Pulse Oximetry [ Bilateral Throughout] 10/07/20 10/07/20 10/07/20 11:55 11:57 12:02 Temperature Pulse Rate 122 H 113 H 106 H Blood Pressure 140/86 O2 Sat by Pulse 97 98 Oximetry O2 Sat by Pulse Oximetry [ Bilateral Throughout] 10/07/20 10/07/20 10/07/20 12:07 12:09 12:12 Temperature Pulse Rate 113 H 114 H 115 H Blood Pressure 145/85 O2 Sat by Pulse 98 98 Oximetry O2 Sat by Pulse Oximetry [ Bilateral Throughout] 10/07/20 10/07/20 10/07/20 12:17 12:26 12:31 Temperature Pulse Rate 105 H 114 H 104 H Blood Pressure O2 Sat by Pulse 98 98 98 Oximetry O2 Sat by Pulse Oximetry [ Bilateral Throughout] 10/07/20 10/07/20 10/07/20 12:36 12:39 12:41 Temperature Pulse Rate 102 H 101 H 101 H Blood Pressure 152/70 O2 Sat by Pulse 98 98 Oximetry O2 Sat by Pulse Oximetry [ Bilateral Throughout] 10/07/20 10/07/20 10/07/20 12:46 12:51 12:56 Temperature Pulse Rate 102 H 95 H 99 H Blood Pressure 145/75 O2 Sat by Pulse 98 98 98 Oximetry O2 Sat by Pulse Oximetry [ Bilateral Throughout] 10/07/20 10/07/20 10/07/20 13:01 13:06 13:09 Temperature Pulse Rate 100 H 102 H 103 H Blood Pressure 117/64 O2 Sat by Pulse 98 98 Oximetry O2 Sat by Pulse Oximetry [ Bilateral Throughout] 10/07/20 10/07/20 10/07/20 13:11 13:16 13:21 Temperature Pulse Rate 109 H 100 H 106 H Blood Pressure O2 Sat by Pulse 98 98 99 Oximetry O2 Sat by Pulse Oximetry [ Bilateral Throughout] 10/07/20 13:24 Temperature Pulse Rate 102 H Blood Pressure 123/67 O2 Sat by Pulse Oximetry O2 Sat by Pulse Oximetry [ Bilateral Throughout] - Exam Breasts: deferred Cardiovascular: Regular rate Lungs: Normal air movement FHR: category 2 Uterine Contraction Monitor Mode: External Cervical Dilatation: 2 (per RN) Cervical Effacement Percentage: 50 (Pitocin infusing) station: -4 Uterine Contraction Frequency (min): 1-2 Uterine Contraction Pattern: Regular Uterine Contraction Intensity: Mild - Labs Labs: Abnormal Labs 10/07/20 08:56 POC Glucose 134 H Laboratory Results - last 24 hr 10/06/20 10/06/20 10/06/20 10:00 15:42 15:56 WBC 8.0 RBC 4.25 Hgb 12.2 Hct 35.9 MCV 85 MCH 29 MCHC 34 RDW 15.2 Plt Count 282 POC Glucose Syphilis IgG Antibody Nonreactive Coronavirus (PCR) Negative Blood Type Antibody Screen 10/06/20 10/06/20 10/06/20 16:00 17:30 21:10 WBC RBC Hgb Hct MCV MCH MCHC RDW Plt Count POC Glucose 90 92 Syphilis IgG Antibody Coronavirus (PCR) Blood Type O POSITIVE Antibody Screen Negative 10/07/20 10/07/20 04:49 08:56 WBC RBC Hgb Hct MCV MCH MCHC RDW Plt Count POC Glucose 89 134 H Syphilis IgG Antibody Coronavirus (PCR) Blood Type Antibody Screen
[2020-10-07] MEDS ORDERED: NALOXONE 2 MG/2 ML INJ IV PRN (23:04)
[2020-10-07] MEDS ORDERED: ePHEDrine SULFATE 50 MG/1 ML INJ IV PRN (23:04)
--- NOTE | 2020-10-07 23:27 | Anesthesia Consultation ---
Anesthesia Consult and Med Hx Date of service: 10/07/20 - Airway Mental/Hyoid Distance: Adequate Mallampati Class: Class III - Pulmonary Exam CTA: Yes - Cardiac Exam Cardiac Exam: RRR - Pre-Operative Health Status ASA Pre-Surgery Classification: ASA3 - Pre-Anesthesia Comment Pre-Anesthesia Comments: tonselectomy - Pulmonary Hx Smoking: No Hx Asthma: Yes (last attach many years ago) Hx Respiratory Symptoms: No SOB: No COPD: No Home Oxygen Therapy: No Hx Pneumonia: No Hx Sleep Apnea: No - Cardiovascular System Hx Hypertension: Yes Hx Coronary Artery Disease: No Hx Heart Attack/AMI: No Hx Angina: No Hx Percutaneous Transluminal Coronary Angioplasty (PTCA): No Hx Cardia Arrhythmia: No Hx Pacemaker: No Hx Internal Defibrillator: No Hx Valvular Heart Disease: No Hx Heart Murmur: No Hx Peripheral Vascular Disease: No - Central Nervous System Hx Neuromuscular Disorder: No Hx Seizures: No CVA: No Hx Back Pain: Yes Hx Psychiatric Problems: No - Gastrointestinal Hx Ulcer: No Hx Gastroesophageal Reflux Disease: Yes - Endocrine Hx Renal Disease: No Hx End Stage Renal Disease: No Hx Cirrhosis: No Hx Liver Disease: No Hx Insulin Dependent Diabetes: No Hx Non-Insulin Dependent Diabetes: Yes Hx Hypothyroidism: No Hx Hyperthyroidism: No - Hematic Hx Anemia: No Hx Sickle Cell Disease: No - Other Systems Hx Alcohol Use: No Hx Substance Use: No Hx Cancer: No Hx Obesity: Yes
--- NOTE | 2020-10-07 23:30 | Progress Note ---
Labor Epidural - Labor Epidural Start Time: 23:10 Stop Time: 23:18 Performed by:: RAFFY WEBSTER Procedure: Patient is requesting a laboring epidural for laboring pain. Patient IDed, H&P reviewed, all questions and concerns were answered, and consent was signed. Timeout was performed at bedside. Patient in sitting position. Sterile prep and drape was performed. [3] ml of 1% lidocaine skin wheal at L[3]- L [4]. 18- gauge Allison epidural needle was advanced to loss of resistance with saline technique 6cm. Negative CSF negative blood. Epidural catheter advanced to [10] centimeters. [NEGATIVE] Aspiration [NEGATIVE] test dose. Sterile dressing applied. Patient tolerated procedure.
[2020-10-08] MEDS: LACTATED RINGERS 1,000 ML IV SCH ×2 (03:08→10:25)
[2020-10-08] MEDS: AMPICILLIN/NS 1 GM/50 ML 1 GM/50 ML BAG IV SCH ×5 (04:24→14:36)
[2020-10-08] MEDS: fentaNYL-BUPIV 2 MCG/ML-0.125% 200 MCG/100 ML BAG EPIDURAL SCH ×2 (07:18)
--- NOTE | 2020-10-08 08:59 | Progress Note ---
Assessment and Plan - Patient Problems (1) Encounter for induction of labor Current Visit: Yes Status: Acute Plan to address problem: Continue Pitocin titration as tolerated Cut epidural dose in half Reposition every 30 mins with peanut ball Anticipate (2) Chronic hypertension Current Visit: Yes Status: Acute (3) Polyhydramnios affecting in third trimester Current Visit: Yes Status: Acute (4) Positive GBS test Current Visit: Yes Status: Acute Plan to address problem: Continue GBS prophylaxis Subjective - Subjective Date of service: 10/08/20 Principal diagnosis: IOL secondary to cHTN; Polyhydramnios Interval history: Pt is a 24 year old -[place] female [facility] 10/19/20 at 38w1d who presents for scheduled induction secondary to chronic hypertension on no meds, gestational diabetes on Metformin, and morbid obesity. She denies contractions or vaginal bleeding. She has had care at [facility] with comanagement by [facility] secondary to morbid obesity, chronic hypertension, gestational diabetes, polyhydramnios, asthma, maternal VSD s/p Cardiology referral March 2020, and genital herpes. She is GBS positive. Patient reports: movement normal, other (reports feeling some vaginal pressure), no vaginal bleeding Objective - Vital Signs Vital Signs: Vital Signs - 12hr 10/07/20 10/07/20 10/07/20 20:56 21:01 21:06 Temperature Pulse Rate 84 110 H 88 Blood Pressure O2 Sat by Pulse 99 99 100 Oximetry 10/07/20 10/07/20 10/07/20 21:11 21:16 21:21 Temperature Pulse Rate 90 81 95 H Blood Pressure O2 Sat by Pulse 98 97 96 Oximetry 10/07/20 10/07/20 10/07/20 21:26 21:31 21:36 Temperature Pulse Rate 95 H 106 H 84 Blood Pressure 146/80 O2 Sat by Pulse 97 99 97 Oximetry 10/07/20 10/07/20 10/07/20 21:41 21:46 21:51 Temperature Pulse Rate 95 H 91 H 82 Blood Pressure O2 Sat by Pulse 97 98 98 Oximetry 10/07/20 10/07/20 10/07/20 21:56 22:01 22:06 Temperature Pulse Rate 97 H 99 H 87 Blood Pressure O2 Sat by Pulse 98 98 96 Oximetry 10/07/20 10/07/20 10/07/20 22:11 22:16 22:21 Temperature Pulse Rate 94 H 82 85 Blood Pressure O2 Sat by Pulse 100 98 97 Oximetry 10/07/20 10/07/20 10/07/20 22:25 22:26 22:31 Temperature Pulse Rate 100 H 87 82 Blood Pressure 147/74 O2 Sat by Pulse 99 97 Oximetry 10/07/20 10/07/20 10/07/20 22:36 22:41 22:46 Temperature Pulse Rate 82 83 79 Blood Pressure O2 Sat by Pulse 97 97 98 Oximetry 10/07/20 10/07/20 10/07/20 22:51 22:56 23:01 Temperature Pulse Rate 109 H 84 107 H Blood Pressure O2 Sat by Pulse 97 99 98 Oximetry 10/07/20 10/07/20 10/07/20 23:06 23:11 23:14 Temperature Pulse Rate 117 H 112 H 118 H Blood Pressure 141/69 148/72 O2 Sat by Pulse 99 98 Oximetry 10/07/20 10/07/20 10/07/20 23:16 23:17 23:20 Temperature 98.6 F Pulse Rate 109 H 100 H 120 H Blood Pressure 135/66 133/59 O2 Sat by Pulse 98 Oximetry 10/07/20 10/07/20 10/07/20 23:21 23:23 23:26 Temperature Pulse Rate 105 H 120 H 121 H Blood Pressure 136/74 144/70 O2 Sat by Pulse 99 99 Oximetry 10/07/20 10/07/20 10/07/20 23:29 23:31 23:32 Temperature Pulse Rate 108 H 111 H 108 H Blood Pressure 148/69 142/66 O2 Sat by Pulse 98 Oximetry 10/07/20 10/07/20 10/07/20 23:35 23:36 23:38 Temperature Pulse Rate 106 H 102 H 114 H Blood Pressure 142/67 140/63 O2 Sat by Pulse 99 Oximetry 10/07/20 10/07/20 10/07/20 23:41 23:46 23:51 Temperature Pulse Rate 111 H 98 H 84 Blood Pressure 142/64 O2 Sat by Pulse 99 98 98 Oximetry 10/07/20 10/07/20 10/08/20 23:56 23:57 00:01 Temperature Pulse Rate 80 77 99 H Blood Pressure 132/66 O2 Sat by Pulse 98 97 Oximetry 10/08/20 10/08/2021 00:06 00:10 00:11 Temperature Pulse Rate 77 69 75 Blood Pressure O2 Sat by Pulse 97 94 98 Oximetry 10/08/20 10/08/20 10/08/20 00:12 00:16 00:21 Temperature Pulse Rate 71 76 77 Blood Pressure 125/59 O2 Sat by Pulse 96 98 Oximetry 10/08/20 10/08/20 10/08/20 00:26 00:27 00:31 Temperature Pulse Rate 78 81 79 Blood Pressure 121/56 O2 Sat by Pulse 97 97 Oximetry 10/08/20 10/08/20 10/08/20 00:36 00:41 00:42 Temperature Pulse Rate 80 79 81 Blood Pressure 121/57 O2 Sat by Pulse 98 98 Oximetry 10/08/20 10/08/20 10/08/20 00:46 00:51 00:56 Temperature Pulse Rate 72 80 74 Blood Pressure O2 Sat by Pulse 98 97 98 Oximetry 10/08/20 10/08/20 10/08/20 00:57 01:01 01:06 Temperature Pulse Rate 81 78 76 Blood Pressure 131/63 O2 Sat by Pulse 98 97 Oximetry 10/08/20 10/08/20 10/08/20 01:11 01:12 01:16 Temperature Pulse Rate 73 80 71 Blood Pressure 127/63 O2 Sat by Pulse 95 99 Oximetry 10/08/20 10/08/20 10/08/20 01:20 01:21 01:26 Temperature 98.3 F Pulse Rate 75 73 Blood Pressure O2 Sat by Pulse 98 98 Oximetry 10/08/20 10/08/20 10/08/20 01:27 01:31 01:36 Temperature Pulse Rate 70 77 73 Blood Pressure 127/60 O2 Sat by Pulse 99 97 Oximetry 10/08/20 10/08/20 10/08/20 01:41 01:42 01:46 Temperature Pulse Rate 71 76 71 Blood Pressure 122/58 O2 Sat by Pulse 96 98 Oximetry 10/08/20 10/08/20 10/08/20 01:51 01:56 01:57 Temperature Pulse Rate 79 74 76 Blood Pressure 124/62 O2 Sat by Pulse 97 99 Oximetry 10/08/20 10/08/20 10/08/20 02:01 02:06 02:11 Temperature Pulse Rate 79 81 82 Blood Pressure O2 Sat by Pulse 98 97 96 Oximetry 10/08/20 10/08/20 10/08/20 02:13 02:16 02:21 Temperature Pulse Rate 71 77 79 Blood Pressure 118/66 O2 Sat by Pulse 96 98 Oximetry 10/08/20 10/08/20 10/08/20 02:26 02:27 02:30 Temperature Pulse Rate 78 79 76 Blood Pressure 127/59 O2 Sat by Pulse 97 94 Oximetry 10/08/20 10/08/20 10/08/20 02:31 02:36 02:41 Temperature Pulse Rate 78 75 75 Blood Pressure O2 Sat by Pulse 97 99 98 Oximetry 10/08/20 10/08/20 10/08/20 02:42 02:46 02:51 Temperature Pulse Rate 69 85 92 H Blood Pressure 127/61 O2 Sat by Pulse 97 96 Oximetry 10/08/20 10/08/20 10/08/20 02:56 02:57 02:59 Temperature Pulse Rate 79 99 H 105 H Blood Pressure 131/75 138/83 O2 Sat by Pulse 98 Oximetry 10/08/20 10/08/20 10/08/20 03:01 03:06 03:11 Temperature Pulse Rate 134 H 101 H 104 H Blood Pressure O2 Sat by Pulse 100 99 99 Oximetry 10/08/20 10/08/20 10/08/20 03:14 03:16 03:21 Temperature Pulse Rate 100 H 94 H 85 Blood Pressure 139/63 O2 Sat by Pulse 97 97 Oximetry 10/08/20 10/08/20 10/08/20 03:26 03:28 03:31 Temperature Pulse Rate 96 H 83 89 Blood Pressure 130/68 O2 Sat by Pulse 98 98 Oximetry 10/08/20 10/08/20 10/08/20 03:36 03:41 03:42 Temperature Pulse Rate 110 H 85 92 H Blood Pressure 123/64 O2 Sat by Pulse 98 97 Oximetry 10/08/20 10/08/20 10/08/20 03:46 03:50 03:51 Temperature 98.5 F Pulse Rate 81 76 Blood Pressure O2 Sat by Pulse 97 97 Oximetry 10/08/20 10/08/20 10/08/20 03:56 04:01 04:06 Temperature Pulse Rate 85 75 80 Blood Pressure 127/63 O2 Sat by Pulse 98 97 97 Oximetry 10/08/20 10/08/20 10/08/20 04:11 04:16 04:21 Temperature Pulse Rate 81 75 78 Blood Pressure 118/60 O2 Sat by Pulse 97 97 98 Oximetry 10/08/20 10/08/20 10/08/20 04:26 04:31 04:36 Temperature Pulse Rate 102 H 84 83 Blood Pressure 129/63 O2 Sat by Pulse 98 98 98 Oximetry 10/08/20 10/08/20 10/08/20 04:41 04:42 04:46 Temperature Pulse Rate 76 78 79 Blood Pressure 129/63 O2 Sat by Pulse 97 97 Oximetry 10/08/20 10/08/20 10/08/20 04:51 04:56 04:57 Temperature Pulse Rate 74 78 80 Blood Pressure 125/64 O2 Sat by Pulse 97 97 Oximetry 10/08/20 10/08/20 10/08/20 05:01 05:06 05:11 Temperature Pulse Rate 75 72 78 Blood Pressure O2 Sat by Pulse 96 99 98 Oximetry 10/08/20 10/08/20 10/08/20 05:12 05:16 05:21 Temperature Pulse Rate 77 75 77 Blood Pressure 134/64 O2 Sat by Pulse 97 98 Oximetry 10/08/20 10/08/20 10/08/20 05:26 05:27 05:31 Temperature Pulse Rate 78 90 79 Blood Pressure 133/83 O2 Sat by Pulse 98 99 Oximetry 10/08/20 10/08/20 10/08/20 05:36 05:41 05:42 Temperature Pulse Rate 74 78 76 Blood Pressure 132/68 O2 Sat by Pulse 99 98 Oximetry 10/08/20 10/08/20 10/08/20 05:46 05:50 05:51 Temperature 98.4 F Pulse Rate 78 76 Blood Pressure O2 Sat by Pulse 99 99 Oximetry 10/08/20 10/08/20 10/08/20 05:56 05:57 06:01 Temperature Pulse Rate 83 75 74 Blood Pressure 137/70 O2 Sat by Pulse 99 99 Oximetry 10/08/20 10/08/20 10/08/20 06:06 06:11 06:12 Temperature Pulse Rate 75 79 102 H Blood Pressure 137/80 O2 Sat by Pulse 99 98 Oximetry 10/08/20 10/08/20 10/08/20 06:16 06:21 06:26 Temperature Pulse Rate 88 89 84 Blood Pressure O2 Sat by Pulse 100 100 100 Oximetry 10/08/20 10/08/20 10/08/20 06:27 06:31 06:36 Temperature Pulse Rate 82 93 H 89 Blood Pressure 137/75 O2 Sat by Pulse 99 100 Oximetry 10/08/20 10/08/20 10/08/20 06:41 06:42 06:46 Temperature Pulse Rate 92 H 93 H 86 Blood Pressure 143/81 O2 Sat by Pulse 100 100 Oximetry 10/08/20 10/08/20 10/08/20 06:51 06:56 06:58 Temperature Pulse Rate 82 82 86 Blood Pressure 138/77 O2 Sat by Pulse 100 100 Oximetry 10/08/20 10/08/20 10/08/20 07:01 07:06 07:11 Temperature Pulse Rate 88 78 80 Blood Pressure O2 Sat by Pulse 98 100 99 Oximetry 10/08/20 10/08/20 10/08/20 07:13 07:16 07:21 Temperature Pulse Rate 86 90 97 H Blood Pressure 138/78 O2 Sat by Pulse 99 100 Oximetry 10/08/20 10/08/20 10/08/20 07:26 07:27 07:31 Temperature Pulse Rate 85 88 90 Blood Pressure 140/80 O2 Sat by Pulse 100 98 Oximetry 10/08/20 10/08/20 10/08/20 07:36 07:41 07:43 Temperature Pulse Rate 93 H 80 85 Blood Pressure 139/81 O2 Sat by Pulse 99 99 Oximetry 10/08/20 10/08/20 10/08/20 07:46 07:51 07:56 Temperature Pulse Rate 84 80 79 Blood Pressure O2 Sat by Pulse 98 99 98 Oximetry 10/08/20 10/08/20 10/08/20 07:57 08:01 08:06 Temperature Pulse Rate 79 78 81 Blood Pressure 137/71 O2 Sat by Pulse 97 98 Oximetry 10/08/20 10/08/20 10/08/20 08:11 08:12 08:16 Temperature Pulse Rate 82 80 79 Blood Pressure 143/79 O2 Sat by Pulse 98 99 Oximetry 10/08/20 10/08/20 10/08/20 08:21 08:26 08:27 Temperature Pulse Rate 83 87 85 Blood Pressure 146/74 O2 Sat by Pulse 100 100 Oximetry 10/08/20 10/08/20 10/08/20 08:31 08:36 08:41 Temperature Pulse Rate 84 98 H 95 H Blood Pressure O2 Sat by Pulse 100 100 100 Oximetry 10/08/20 10/08/20 10/08/20 08:42 08:46 08:51 Temperature Pulse Rate 89 92 H 89 Blood Pressure 137/65 O2 Sat by Pulse 99 97 Oximetry - Exam Breasts: deferred Cardiovascular: Regular rate Lungs: Normal air movement FHR: category 1 Uterine Contraction Monitor Mode: Internal Cervical Dilatation: 9.5 (vertex) Cervical Effacement Percentage: 90 (Pitocin infusion) station: 0 Uterine Contraction Frequency (min): 2-4 Uterine Contraction Pattern: Regular Uterine Tone Measurement Phase: Resting Uterine Contraction Intensity: Strong/Firm Extremities: edema - Labs Labs: Abnormal Labs 10/07/20 08:56 POC Glucose 134 H Laboratory Results - last 24 hr 10/07/20 10/07/20 10/07/20 08:56 13:51 18:10 POC Glucose 134 H 101 85 10/08/20 10/08/20 00:03 04:28 POC Glucose 89 77
[2020-10-08] MEDS: valACYclovir 500 MG TAB PO SCH ×2 (09:14)
[2020-10-08] MEDS ORDERED: LIDOCAINE (2%) 20 MG/1 ML VIAL 20 ML MDV INFILTRATI ONE ×2 (17:10→17:11)
[2020-10-08] MEDS ORDERED: MAGNESIUM HYDROXIDE (MOM) ORAL LIQD UDC PO PRN (17:33)
[2020-10-08] MEDS ORDERED: PROMETHAZINE 25 MG RECT SUPP PR PRN (17:33)
[2020-10-08] MEDS ORDERED: WITCH HAZEL/ GLYCERIN PAD TP PRN (17:33)
[2020-10-08] MEDS ORDERED: LANOLIN/ZINC/DIMETHICONE (LANSINOH) 7 GM TP PRN (17:33)
[2020-10-08] MEDS ORDERED: oxyCODONE /ACETAMINOPHEN 5-325MG TAB PO PRN (17:33)
[2020-10-08] MEDS ORDERED: diphenhydrAMINE 25 MG CAP PO PRN (17:33)
[2020-10-08] MEDS ORDERED: PROMETHAZINE 25 MG TAB PO PRN (17:33)
--- NOTE | 2020-10-08 17:44 | Procedure Note ---
OB Delivery Note - Delivery Date of Delivery: 10/08/20 (4388) Surgeon: TONI ROSA (EMMIE) Estimated blood loss: other (QBL: 253ml) - Vaginal Delivery presentation: vertex Delivery position: OA (DANIELLE) Delivery induction: cervidil Delivery augmentation: rupture of membranes (AROM @ 1630 on 10/07/20) Delivery monitor: external FHT, internal uterine Route of delivery: Delivery placenta: spontaneous (1700, ortiz) Delivery cord: 3 umbilical vessels Episiotomy: none Delivery laceration: other (denise-urethral laceration, repaired) Delivery repair: vicryl (3.0- SH) Anesthesia: epidural Delivery comments: of viable female, crying infant, placed directly to maternal abdomen. Cord double clamped, cut by FOB, after cessation of pulsation. Cord blood collected and sent to lab. Placenta spontaneously delivered,angel, disposed per hospital policy. Uterus firm @ U-2, hemostasis maintained. Denise-urethral laceration, repaired. Mother and baby safe, stable and left in care of RN. - Infant A at 1 minute: 8 at 5 minutes: 9 Gender: Female (Weight: 3420 gms (7lbs 9ozs) 20 inches)
[2020-10-08] MEDS: IBUPROFEN 600 MG TAB PO SCH (23:44)
[2020-10-09] MEDS: IBUPROFEN 600 MG TAB PO SCH ×2 (05:40→11:59)
[2020-10-09 07:33] LABS: Hematocrit 31.2 % (30.3-42.9); Hemoglobin 10.4 gm/dl (10.1-14.3)
--- NOTE | 2020-10-09 08:43 | Progress Note ---
Assessment and Plan A: PPD#1 s/p at term Chronic HTN no meds GDM Morbid Obesity P: Routine care Anticipate discharge tomorrow Subjective - Subjective Date of service: 10/09/20 Principal diagnosis: s/p at term, GDM, Chronic HTN. MO Interval history: Pt without complaints Patient reports: appetite normal, voiding normally, pain well controlled, ambulating normally [place]: doing well Objective - Vital Signs Latest vital signs: Vital Signs Temp Pulse Resp BP BP Pulse Ox Pulse Ox 10/09/20 08:31 97.6 F 87 18 143/88 97 10/09/20 05:40 20 10/09/20 05:20 98.0 F 81 20 119/60 95 10/09/20 00:47 97.9 F 105 H 20 133/83 96 10/08/20 23:44 20 10/08/20 20:10 98.8 F 79 18 119/72 99 99 10/08/20 19:11 90 134/79 10/08/20 18:56 67 138/73 10/08/20 18:41 82 129/66 10/08/20 18:27 97 H 137/68 10/08/20 17:57 90 99 10/08/20 17:56 94 H 139/76 10/08/20 17:52 88 99 10/08/20 17:47 88 98 10/08/20 17:42 96 H 97 10/08/20 17:41 91 H 134/69 10/08/20 17:37 94 H 98 10/08/20 17:32 97 H 99 10/08/20 17:27 91 H 132/73 98 10/08/20 17:22 119 H 99 10/08/20 17:17 99 H 99 10/08/20 17:12 106 H 157/74 98 10/08/20 17:07 100 H 100 10/08/20 17:02 96 H 100 10/08/20 16:57 113 H 146/96 100 10/08/20 16:52 101 H 100 10/08/20 16:47 98 H 100 10/08/20 16:43 30 L 79 L 10/08/20 16:42 83 100 10/08/20 16:41 81 143/78 10/08/20 16:37 83 100 10/08/20 16:32 77 100 10/08/20 16:27 73 137/68 100 10/08/20 16:22 79 100 10/08/20 16:17 85 97 10/08/20 16:12 81 189/113 100 10/08/20 16:07 85 99 10/08/20 16:02 86 99 10/08/20 15:58 86 140/88 10/08/20 15:57 92 H 100 10/08/20 15:52 89 98 10/08/20 15:47 78 97 10/08/20 15:42 100 H 100 10/08/20 15:41 81 135/78 10/08/20 15:37 94 H 98 10/08/20 15:32 79 97 10/08/20 15:27 94 H 144/72 100 10/08/20 15:22 85 97 10/08/20 15:17 81 97 10/08/20 15:12 97 H 140/79 98 10/08/20 15:07 107 H 98 10/08/20 15:02 105 H 98 10/08/20 14:57 82 126/77 96 10/08/20 14:52 84 97 10/08/20 14:47 89 96 10/08/20 14:42 97 H 130/79 97 10/08/20 14:37 98.7 F 102 H 18 98 10/08/20 14:32 102 H 98 10/08/20 14:27 84 137/95 98 10/08/20 14:22 76 97 10/08/20 14:17 87 96 10/08/20 14:12 91 H 96 10/08/20 14:11 87 139/64 10/08/20 14:07 90 96 10/08/20 14:02 98 H 97 10/08/20 13:58 86 136/67 10/08/20 13:57 91 H 96 10/08/20 13:52 111 H 99 10/08/20 13:47 91 H 97 10/08/20 13:42 80 96 10/08/20 13:41 76 125/66 10/08/20 13:37 85 96 10/08/20 13:32 86 96 10/08/20 13:27 81 97 10/08/20 13:26 85 134/73 10/08/20 13:22 88 96 10/08/20 13:17 81 97 10/08/20 13:12 91 H 132/74 96 10/08/20 13:07 90 97 10/08/20 13:02 95 H 98 10/08/20 12:59 99.0 F 10/08/20 12:57 101 H 97 10/08/20 12:56 100 H 147/87 10/08/20 12:52 106 H 97 10/08/20 12:50 103 H 93 10/08/20 12:47 107 H 99 10/08/20 12:42 100 H 95 10/08/20 12:41 106 H 147/86 10/08/20 12:37 98 H 96 10/08/20 12:32 101 H 96 10/08/20 12:31 117 H 94 10/08/20 12:28 102 H 141/87 10/08/20 12:27 106 H 98 10/08/20 12:22 94 H 96 10/08/20 12:17 109 H 95 10/08/20 12:15 93 H 94 10/08/20 12:12 94 H 143/78 95 10/08/20 12:07 97 H 95 10/08/20 12:02 98 H 95 10/08/20 12:00 93 H 94 10/08/20 11:57 96 H 143/71 95 10/08/20 11:52 118 H 97 10/08/20 11:47 98 H 96 10/08/20 11:42 115 H 98 10/08/20 11:41 91 H 147/74 10/08/20 11:37 104 H 100 10/08/20 11:33 102 H 94 10/08/20 11:32 112 H 100 10/08/20 11:27 111 H 146/78 97 10/08/20 11:26 114 H 87 10/08/20 11:22 117 H 98 10/08/20 11:17 101 H 99 10/08/20 11:12 99 H 98 10/08/20 11:11 99.0 F 106 H 147/77 10/08/20 11:07 108 H 100 10/08/20 11:05 87 92 10/08/20 11:02 110 H 99 10/08/20 10:57 115 H 98 10/08/20 10:56 109 H 147/79 10/08/20 10:52 119 H 98 10/08/20 10:47 99 H 98 10/08/20 10:42 109 H 139/81 98 10/08/20 10:37 105 H 98 10/08/20 10:32 105 H 96 10/08/20 10:27 111 H 117/56 10/08/20 10:26 112 H 97 10/08/20 10:21 117 H 99 10/08/20 10:16 108 H 99 10/08/20 10:13 110 H 136/76 10/08/20 10:11 109 H 100 10/08/20 10:06 105 H 100 10/08/20 10:01 107 H 99 10/08/20 09:58 103 H 137/68 10/08/20 09:56 120 H 98 10/08/20 09:51 102 H 99 10/08/20 09:46 109 H 98 10/08/20 09:42 106 H 159/80 10/08/20 09:41 106 H 98 10/08/20 09:36 103 H 97 10/08/20 09:31 100 H 98 10/08/20 09:27 101 H 141/77 10/08/20 09:26 103 H 99 10/08/20 09:21 92 H 97 10/08/20 09:16 98 H 99 10/08/20 09:12 103 H 155/82 10/08/20 09:11 105 H 98 10/08/20 09:06 104 H 100 10/08/20 09:01 95 H 100 10/08/20 08:56 104 H 100 10/08/20 08:51 89 97 10/08/20 08:50 98.3 F 100 10/08/20 08:46 92 H 99 10/08/20 08:42 89 137/65 Intake and Output 10/08/20 10/09/20 10/09/20 22:59 06:59 14:59 Intake Total 257.766 480 Output Total 1300 1400 Balance -1042.234 -920 Intake: IV 17.766 PITOCin/NS 30 UNIT/500ML 17.766 30 units In 500 ml @ 2 mls/hr IV TITR DIANA Rx#: [id number] Intake, Free Water 240 480 Output: Urine 1300 1400 Uretheral ([place]) 300 Void 1000 1400 Other: Total, Output Amount 500 700 # Voids Void 1 1 Estimated Blood Loss 253 - Exam Breasts: Present: deferred Abdomen: Present: soft (obese ) Uterus: Present: fundal height at umbilicus Extremities: Present: edema
[2020-10-09] MEDS: PRENATAL VIT27-FE FUMARATE-FOLIC ACID VIT TAB PO SCH (10:54)
--- NOTE | 2020-10-09 20:26 | Post Anesthesia Evaluation ---
- Post Anesthesia Evaluation Patient Participated: Yes Airway Patent: Yes Stable Respiratory Function: Yes Nausea/Vomiting: No Temp > 96.8F: Yes Pain Manageable: Yes Adequeate Hydration: Yes Anesthesia Complications: No Block Receding Appropriately: Yes
[2020-10-10] MEDS: IBUPROFEN 600 MG TAB PO SCH ×3 (00:15→12:59)
[2020-10-10] MEDS: PRENATAL VIT27-FE FUMARATE-FOLIC ACID VIT TAB PO SCH (12:58)
--- NOTE | 2020-10-10 16:07 | Progress Note ---
Assessment and Plan PPD 2 s/p . Doing well. Plan for discharge on today. Subjective - Subjective Date of service: 10/10/20 Principal diagnosis: s/p at term, GDM, Chronic HTN. MO Patient reports: appetite normal, voiding normally, pain well controlled, ambulating normally : doing well Objective - Vital Signs Latest vital signs: Vital Signs Temp Pulse Resp BP Pulse Ox Pulse Ox 10/10/20 12:59 20 10/10/20 08:10 98 10/10/20 08:04 99.0 F 84 20 138/82 99 10/10/20 01:20 97.8 F 88 20 130/79 98 10/10/20 00:15 12 10/09/20 20:30 98 10/09/20 16:09 97.4 F L 74 18 121/77 95 Intake and Output 10/10/20 10/10/20 10/10/20 06:59 14:59 22:59 Intake Total 360 240 Balance 360 240 Intake: Oral 360 240 Other: Total, Intake Amount 120 240 # Voids Void 1 1 - Exam Breasts: Present: deferred Cardiovascular: Present: Regular rate, Normal S1, Normal S2 Lungs: Present: Clear to auscultation, Normal air movement Abdomen: Present: normal appearance, soft, normal bowel sounds Vulva: both: normal Uterus: Present: normal, firm Extremities: Present: normal
--- NOTE | 2020-10-10 16:12 | Discharge Summary ---
Providers - Providers Date of Admission: 10/06/20 10:36 Date of discharge: 10/10/20 Attending physician: ARMANDO BRAVO 10/08/20 17:36 Consult to Money Room Supervisor [CONS] Routine Reason For Exam: assistance with , SNS Primary care physician: ARMANDO BRAVO Hospitalization Reason for admission: active labor Delivery: Episiotomy: none Other procedures: none complications: none Discharge diagnosis: IUP at term delivered [place] baby: male Condition at discharge: Good Disposition: DC-01 TO HOME OR SELFCARE Plan - Discharge Medications Prescriptions: Ibuprofen [Motrin] 800 mg PO Q8HR PRN #30 tablet PRN Reason: Pain, Moderate (4-6) - Provider Discharge Summary Activity: routine, no sex for 6 weeks, no heavy lifting 4 weeks, no strenuous exercise Diet: routine Instructions: routine Additional instructions: [] Smoking cessation referral if applicable(refer to patient education folder for contact #) [] Refer to [facility] Booklet Call your doctor immediately for: * Fever > 100.5 * Heavy vaginal bleeding ( >1 pad per hour) * Severe persistent headache * Shortness of breath * Reddened, hot, painful area to leg or breast * Drainage or odor from incision. * Keep incision clean and dry at all times and follow doctor's instructions regarding bathing/showering - Follow up plan Follow up: ARMANDO BRAVO MD [Primary Care Provider] - 6 Weeks
[2020-10-10 16:56] VITALS: BP 134/75
== END 2020-10-10 18:30 | disposition home or self-care (01) | DRG 774 ==
LOC: TRG 08:24 → LD 08:26 → TRG 10:36 → LD 10:36 → OB 10-08 20:30
PROVIDERS: ADMIT Obstetrics & Gynecology; ATTEND Obstetrics & Gynecology
PROC: 3E0R3BZ Introduction of Anesthetic Agent into Spinal Canal, Percutaneous Approach (ICD-10-PCS; 2020-10-07)
PROC: 00HU33Z Insertion of Infusion Device into Spinal Canal, Percutaneous Approach (ICD-10-PCS; 2020-10-07)
PROC: 10E0XZZ Delivery of Products of Conception, External Approach (ICD-10-PCS; principal; 2020-10-08)
PROC: 3E0P7VZ Introduction of Hormone into Female Reproductive, Via Natural or Artificial Opening (ICD-10-PCS; 2020-10-08)
PROC: 10907ZC Drainage of Amniotic Fluid, Therapeutic from Products of Conception, Via Natural or Artificial Opening (ICD-10-PCS; 2020-10-08)
PROC: 0UQMXZZ Repair Vulva, External Approach (ICD-10-PCS; 2020-10-08)
PROC: 3E033VJ Introduction of Other Hormone into Peripheral Vein, Percutaneous Approach (ICD-10-PCS; 2020-10-08)
DX: O99.214 Obesity complicating childbirth (principal); O98.32 Other infections with a predominantly sexual mode of transmission complicating childbirth; E66.01 Morbid (severe) obesity due to excess calories; O16.4 Unspecified maternal hypertension, complicating childbirth; O99.52 Diseases of the respiratory system complicating childbirth; O24.429 Gestational diabetes mellitus in childbirth, unspecified control; J45.909 Unspecified asthma, uncomplicated; Z82.49 Family history of ischemic heart disease and other diseases of the circulatory system; O40.3XX0 Polyhydramnios, third trimester, not applicable or unspecified; A60.00 Herpesviral infection of urogenital system, unspecified; O99.824 Streptococcus B carrier state complicating childbirth; O99.62 Diseases of the digestive system complicating childbirth; K21.9 Gastro-esophageal reflux disease without esophagitis; O71.82 Other specified trauma to perineum and vulva; Z3A.38 38 weeks gestation of pregnancy; Z37.0 Single live birth; Z80.9 Family history of malignant neoplasm, unspecified; Z20.822 Contact with and (suspected) exposure to COVID-19
CPT/HCPCS: 36415; 59200; 76815; 82962; 85014; 85018; 85027; 86592; 86850; 86900; 86901; G0378; J0290; J2405; J2590; J7120; U0003

== ENCOUNTER 2021-07-27 15:19 | Emergency (ER) | payer MEDICAID ==
[2021-07-27 15:43] VITALS: BP 144/84
[2021-07-27 16:57] LABS: Hematocrit 36.5 % (30.3-42.9); Hemoglobin 11.8 gm/dl (10.1-14.3); Mean Corpuscular HGB Conc 32 % (30-34); Mean Corpuscular Volume 84 fl (79-97); Red Blood Count 4.38 M/mm3 (3.65-5.03); Red Cell Distribution Width 15.7 % (13.2-15.2)
[2021-07-27 16:58] LABS: Basophils # (Auto) 0.1 K/mm3 (0.0-0.1); Basophils % (Auto) 1.1 % (0.0-1.8); Eosinophils # (Auto) 0.2 K/mm3 (0.0-0.4); Eosinophils % (Auto) 2.4 % (0.0-4.3); Lymphocytes # (Auto) 2.8 K/mm3 (1.2-5.4); Lymphocytes % (Auto) 34.6 % (13.4-35.0); Monocytes # (Auto) 0.7 K/mm3 (0.0-0.8); Monocytes % (Auto) 8.4 % (0.0-7.3); Platelet Count 399 K/mm3 (140-440)
[2021-07-27 17:23] LABS: Alanine Aminotransferase 10 units/L (7-56); Albumin 4.1 g/dL (3.9-5); Blood Urea Nitrogen 5 mg/dL (7-17); Calcium 8.9 mg/dL (8.4-10.2); Hemolysis Index 1
[2021-07-27 17:28] LABS: BUN/Creatinine Ratio 10
== END 2021-07-27 20:05 | disposition left against medical advice (07) ==
LOC: ED 15:19
DX: O03.9 Complete or unspecified spontaneous abortion without complication (principal); Z53.21 Procedure and treatment not carried out due to patient leaving prior to being seen by health care provider
CPT/HCPCS: 36415; 80053; 84702; 85025

== ENCOUNTER 2021-08-09 04:07 | Emergency (ER) | payer MEDICAID | END 2021-08-09 04:37 | disposition left against medical advice (07) | LOC: ED 04:07 | DX: S09.90XA Unspecified injury of head, initial encounter (principal); Z53.21 Procedure and treatment not carried out due to patient leaving prior to being seen by health care provider; X58.XXXA Exposure to other specified factors, initial encounter; Y93.89 Activity, other specified; Y92.89 Other specified places as the place of occurrence of the external cause; Y99.8 Other external cause status ==